=== PATIENT | female | born 2000 | race Caucasian/White ===

== ENCOUNTER 2024-07-10 23:37 | Emergency (ER) | payer SELFPAY ==
[2024-07-10 23:42] VITALS: BP 139/85; PULSE 68; TEMP 37.1; O2SAT 100; BMI 15.8
--- NOTE | 2024-07-10 23:56 | ED.ALLEREA1 ---
HPI - Allergic Reaction General Chief complaint: Allergic Reaction Stated complaint: ALLERGIC REACTION Time Seen by Provider: 07/10/24 23:43 Source: patient Mode of arrival: walk-in History of Present Illness HPI narrative: This 24-year-old female who is allergic to dogs and was around a dog about an hour and a half ago and then developed itching to her face and redness and swelling with clear drainage to the left eye presents for evaluation of the above complaints. She is not have any difficulty breathing or swallowing. She does not have any generalized hives. No medications were taken prior to arrival. She denies the possibility of . She denies any nausea vomiting or abdominal pain. She is not having any chest pain or shortness of breath. She denies any new medications, foods, beauty products or detergents. Related Data Home Medications ?Medication ?Instructions ?Recorded ?Confirmed sertraline 50 mg tablet 50 mg PO DAILY 07/10/24 07/10/24 Allergies Allergy/AdvReac Type Severity Reaction Status Date / Time No Known Drug Allergies Allergy Verified 07/10/24 23:48 Review of Systems ROS Status of ROS 10 or more systems reviewed and unremarkable except as noted in history and below [facility] Medical History (Updated 07/11/24 @ 00:41 by Prachi Mendiola MD) depression ?F53.0 - depression (ICD-10) Anemia ?D64.9 - Anemia, unspecified (ICD-10) Asthma ?J45.909 - Unspecified asthma, uncomplicated (ICD-10) Social History Little interest or pleasure in doing things: not at all Feeling down, depressed, or hopeless: not at all Exam Narrative Exam Narrative: Vital signs and Nursing Notes reviewed: Patient is afebrile with a normal pulse, blood pressures stable at 139/85, she is not hypoxic with pulse ox of 100% on room air General: Awake, alert, oriented, no acute distress, lying comfortably on the stretcher HEENT: Normocephalic atraumatic, mucous membranes are moist and pink, mild conjunctival injection to the left eye only with clear tearing, no chemosis noted, patient's tonsils are 3+ but do not exhibit any exudate or redness. There is mild redness with questionable hives on the left cheek. There is no swelling of the tongue, uvula or pharyngeal soft tissues, there is no abnormality to her voice. Neck: Supple, no stridor Chest: Lungs are clear to auscultation with good air entry, there is no wheezing rhonchi or rales appreciated no accessory muscle use, patient is speaking in complete sentences-no chest wall tenderness to palpation CVS: Regular rate and rhythm S1-S2, no murmurs rubs or gallops, pulses are brisk and equal bilaterally ABD: Soft, nondistended, nontender, no rebound guarding or rigidity, bowel sounds are normal, no pulsatile masses appreciated Extremities: Moving all extremities, Skin: Normal in appearance without rash,pallor, petechiae or purpura-no hives noted Neuro: No focal deficits Constitutional Vital Signs, click to edit/add: Last Vital Signs Temp 98.8 F 07/10/24 23:42 Pulse 68 07/10/24 23:42 Resp 18 07/10/24 23:42 BP 139/85 07/10/24 23:42 Pulse Ox 100 07/10/24 23:42 Course Vital Signs Vital signs: Vital Signs Temperature 98.8 F 07/10/24 23:42 Pulse Rate 68 07/10/24 23:42 Respiratory Rate 18 07/10/24 23:42 Blood Pressure 139/85 07/10/24 23:42 Pulse Oximetry 100 07/10/24 23:42 Temperature 98.8 F 07/10/24 23:42 Pulse Rate 68 07/10/24 23:42 Respiratory Rate 18 07/10/24 23:42 Blood Pressure 139/85 07/10/24 23:42 Pulse Oximetry 100 07/10/24 23:42 MDM - Allergic Reaction MDM Narrative Medical decision making narrative: This 24-year-old female who is allergic to dogs presents for evaluation of an allergic reaction with mild redness to her left cheek and conjunctival injection and clear tearing to the left eye without chemosis after being with a dog she was unfamiliar with prior to the development of her symptoms.. She is not having difficulty breathing or swallowing. She has no nausea or vomiting. She does not have diffuse generalized hives. She has no signs of angioedema. She was medicated with a dose of Benadryl and 125 mg of IM Solu-Medrol. On reevaluation her symptoms have improved. She does have Benadryl, Zyrtec and Claritin at home. She was encouraged to use those as needed on an ongoing basis and return the emergency department as needed for worsening symptoms or any concerns. Discharge Plan Discharge Chief Complaint: Allergic Reaction Clinical Impression: Allergic reaction Patient Disposition: Home, Self-Care Time of Disposition Decision: 00:41 Condition: Good Prescriptions / Home Meds: No Action sertraline 50 mg tablet 50 mg PO DAILY Print Language: Sen[place] Instructions: General Allergic Reaction (ED) Referrals: Physician,Non-Staff, MD [Primary Care Provider] - 1 week
[2024-07-11] MEDS: METHYLPREDNISOLONE SOD SUCC PF 125 MG/2 ML VIAL IM (00:18)
[2024-07-11] MEDS: DIPHENHYDRAMINE HCL 25 MG CAPSULE PO (00:18)
== END 2024-07-11 00:47 | disposition home or self-care (01) ==
PROVIDERS: Emergency Provider Emergency Medicine
DX: J30.81 Allergic rhinitis due to animal (cat) (dog) hair and dander (principal)
CPT/HCPCS: 96372; 99284; J2919